=== PATIENT | male | born 1955 | race Caucasian/White ===

== ENCOUNTER 2025-06-13 16:05 | Outpatient (CLI) | payer OTHER, SELFPAY ==
--- NOTE | ~2025-06-13 | XR_ITS ---
EXAMINATION: XR foot LT min 3V DATE: 06/13/2025 16:50 INDICATION: Osteoarthritis TECHNIQUE: 4 images of the left foot were obtained. COMPARISON: None. FINDINGS: Bones appear osteopenic. Soft tissue swelling about the left foot. Vascular calcifications are present. Pes planus. Extensive degenerative change in the mid and hindfoot. Toes are curled which limits evaluation. No displaced fracture identified. Moderate degenerative change in the first metatarsophalangeal joint with adjacent soft tissue swelling. IMPRESSION: 1. Pes planus. 2. Extensive degenerative change in the mid and hindfoot. If symptoms persist or worsen, consider a short-term follow-up study or additional imaging for further assessment. Please see above for full details. Reviewed, dictated and finalized at location [facility]. IMPRESSION: 1. Pes planus. 2. Extensive degenerative change in the mid and hindfoot. If symptoms persist or worsen, consider a short-term follow-up study or additio nal imaging for further assessment. Please see above for full details.
--- NOTE | ~2025-06-13 | XR_ITS ---
EXAMINATION: XR foot RT min 3V DATE: 06/13/2025 16:50 INDICATION: Osteoarthritis. TECHNIQUE: 4 images of the right foot were obtained. COMPARISON: None. FINDINGS: Bones appear osteopenic. The toes are curled which limits evaluation. Soft tissue swelling about the right foot. Vascular calcifications are present. Moderate degenerative change in the first metatarsophalangeal joint. Extensive degenerative change throughout the midfoot and hindfoot. Pes planus. Small plantar heel spur. IMPRESSION: 1. Pes planus. 2. Extensive degenerative change in the midfoot and hindfoot. 3. Moderate degenerative change in the first metatarsophalangeal joint. 4. Soft tissue swelling about the right foot. If symptoms persist or worsen, consider a short-term follow-up study or additional imaging for further assessment. Reviewed, dictated and finalized at location [facility]. IMPRESSION: 1. Pes planus. 2. Extensive degenerative change in the midfoot and hindfoot. 3. Moderate degenerative change in the first metatarsophalangeal joint. 4. Soft tissue swelling about the right foot. If symptoms persist or worsen, consider a short-term follow-up study or additio nal imaging for further assessment.
== END 2025-06-13 16:06 | disposition home or self-care (01) ==
DX: M19.071 Primary osteoarthritis, right ankle and foot (principal); M19.072 Primary osteoarthritis, left ankle and foot; I70.213 Atherosclerosis of native arteries of extremities with intermittent claudication, bilateral legs; M79.671 Pain in right foot; M79.672 Pain in left foot; R26.89 Other abnormalities of gait and mobility; R26.0 Ataxic gait; L08.89 Other specified local infections of the skin and subcutaneous tissue
CPT/HCPCS: 73630